=== PATIENT | female | born 1995 | race Caucasian/White ===

== ENCOUNTER → 2021-01-17 | Outpatient (CLI) | payer OTHER ==
[~2021-01-17] MED LIST: CIPRO500 MG PO; IBUPROFEN800 MG PO; URETRON D/S TAB1 TAB PO
== END | disposition home or self-care (01) ==
LOC: PPH VACUNA
DX: Z23 Encounter for immunization (principal)

== ENCOUNTER 2024-09-18 16:14 | Emergency (ER) | payer OTHER ==
[~2024-09-18] VITALS: Ht 170.2 cm; Wt 78.5 kg
[2024-09-18] MEDS ORDERED: METIMAZOL (16:37)
[2024-09-18] MEDS ORDERED: ACETAMINOPHEN 500 MG GEL..CAP PO ONE ×2 (18:54→19:00)
[2024-09-18 19:47] LABS: URINE APPEARANCE Cloudy; URINE BILIRRUBIN Negative (NEGATIVE); URINE BLOOD Negative; URINE COLOR Yellow; URINE GLUCOSE Negative (NEGATIVE); URINE KETONE Negative (NEGATIVE); URINE LEUKOCYTE Moderate; URINE NITRATE Negative; URINE PROTEIN Negative (NEGATIVE); URINE UROBILINOGEN 0.2 E.U./dl
[2024-09-18 19:50] LABS: HEMATOCRIT 32.8 % (36.0-45.00); MEAN CORPUSCULAR HGB CONC 32.1 g/dl (32.0-36.0); PLATELET COUNT 365 K/uL (150-450); RED BLOOD COUNT 4.73 M/uL (4.00-6.00)
[2024-09-18 19:51] LABS: URINE BACTERIA 1247.1 uL (0.0-1933); URINE EPITHELIAL CELLS 47.8 uL (0.0-38.8); URINE RBC 12.2 uL (0.0-20.8); URINE WBC 299.2 uL (0.0-23.2)
[2024-09-18 19:52] LABS: URINE CAST 0.14 uL (0.0-1.40)
[2024-09-18 19:54] LABS: HEMOGLOBIN 10.5 g/dL (12.0-15.00); MEAN CELL VOLUME 69.4 fL (80.00-100.00); MEAN CORPUSCULAR HEMOGLOBIN 22.1 pg (27.00-32.0); RED CELL DISTRIBUTION WIDTH 18.1 % (11.5-14.5)
[2024-09-18 20:25] LABS: CALCIUM 8.8 mg/dL (8.5-10.1); CREATININE SERUM 0.73 mg/dL (0.55-1.02); GFR 93.61; POTASSIUM 3.82 mEq/L (3.5-5.1)
== END 2024-09-19 01:07 | disposition home or self-care (01) ==
LOC: ER 16:16
PROVIDERS: Emergency Medicine
DX: O20.9 Hemorrhage in early pregnancy, unspecified (principal); O23.41 Unspecified infection of urinary tract in pregnancy, first trimester; N39.0 Urinary tract infection, site not specified; O34.81 Maternal care for other abnormalities of pelvic organs, first trimester; N83.201 Unspecified ovarian cyst, right side; Z3A.01 Less than 8 weeks gestation of pregnancy; E03.9 Hypothyroidism, unspecified